=== PATIENT | male | born 1980 | race Caucasian/White ===

== ENCOUNTER 2024-03-07 16:05 | Emergency (ER) | payer OTHER ==
[~2024-03-07] VITALS: Ht 177.8 cm; Wt 99.8 kg
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
[2024-03-07] MEDS ORDERED: IBUP-2077 PO (16:56)
[2024-03-07] MEDS ORDERED: CYCL-309 PO (16:56)
[2024-03-07] MEDS: ibuPROFEN 800 MG TAB PO ONE (17:14)
[2024-03-07 17:16] VITALS: BP 141/74; PULSE 74; RESP 16; TEMP 98.4; O2SAT 97
== END 2024-03-07 17:28 | disposition home or self-care (01) ==
LOC: EDH 16:05
DX: S16.1XXA Strain of muscle, fascia and tendon at neck level, initial encounter (principal); S29.012A Strain of muscle and tendon of back wall of thorax, initial encounter; Z79.899 Other long term (current) drug therapy; V49.9XXA Car occupant (driver) (passenger) injured in unspecified traffic accident, initial encounter; Y93.89 Activity, other specified; Y92.488 Other paved roadways as the place of occurrence of the external cause; Y99.8 Other external cause status
CPT/HCPCS: 72040; 72070; 99284